=== PATIENT | female | born 1930 | race Caucasian/White ===

== ENCOUNTER 2019-01-23 21:51 | Inpatient (IN) ==
--- NOTE | 2019-01-23 22:02 | Emergency Department Note ---
Disposition Clinical Impression: Dementia, Altered mental status Disposition: Admitted As Inpatient Condition: Fair Referrals: Onesimo Prince, [employer]INU[employer] OPERATOR [Primary Care Provider] - Forms: ED Satisfaction Letter Time of Disposition: 23:45 (ronaldo Montes) Altered Mental Status HPI - General Chief Complaint: ED Altered Mental Status Stated Complaint: CONFUSION Time Seen by Provider: 01/23/19 21:53 Source: family, EMS Mode of arrival: EMS Limitations: altered mental status, age Nursing Notes Reviewed: Yes Vital Signs Reviewed: Yes - History of Present Illness MD complaint: altered mental status, confusion, weakness Onset (ago): hour(s) (6.5) Time: 15:00 Timing confirmed by: family member Pain Severity: moderate Pain Scale: 4 (right shoulder) Consistency of Symptoms: waxing and waning Context: history of similar presentation (dementia) Associated symptoms: Reports: shortness of breath (All obtained from family), difficulty walking. Denies: chest pain, cough, diaphoresis, fever, chills, headaches, loss of appetite, malaise, nausea/vomiting, rash, seizure, syncope, weakness, foul smelling urine, diarrhea, incontinence - Related Data Home Medications Medication Instructions Recorded Confirmed FLUoxetine HCl [PROzac] 20 mg PO DAILY 01/23/19 01/23/19 Furosemide [Lasix] 0 mg PO DAILY 01/23/19 01/23/19 LORazepam [Ativan] 0.25 mg PO PRN PRN 01/23/19 01/23/19 Lisinopril [Zestril] 10 mg PO DAILY 01/23/19 01/23/19 Omeprazole [PriLOSEC] 20 mg PO DAILY 01/23/19 01/23/19 Allergies Allergy/AdvReac Type Severity Reaction Status Date / Time No Known Allergies Allergy Verified 01/23/19 22:26 All systems ED: reviewed and negative except as stated. Review of Systems: As Per HPI (This information was obtained from the family not from the patient because of her confusional state) Constitutional: Reports: weakness. Denies: fever, chills Eyes: Denies: eye pain, eye discharge ENT ED: Denies: ear pain, throat pain Cardiovascular: Denies: chest pain, palpitations Respiratory: Denies: cough, dyspnea, wheezes Gastrointestinal: Denies: abdominal pain, nausea Genitourinary: Denies: urgency, dysuria, frequency Musculoskeletal: Denies: back pain, neck pain Integumentary: Denies: rash, abrasion Neurological: Reports: weakness, confusion. Denies: headache, abnormal gait Psychiatric: Denies: anxiety Endocrine: Denies: fatigue Hematological/Lymphatic: Denies: easy bleeding Past Medical History - Past Medical History Attestation: Yes The following information was validated with the patient. Source: old records reviewed, obtained from family, nursing notes reviewed Physical Exam - General Limitations: altered mental status, age General appearance: obese, other (Confused) - Head Head exam: atraumatic, normocephalic, normal inspection - Eye Eye exam: Present: normal appearance, PERRL, EOMI - ENT ENT exam: normal exam, normal oropharynx, mucous membranes moist, TM's normal bi laterally, normal external ear exam - Neck Neck exam: Present: normal inspection, full ROM, trachea midline - Chest Chest inspection: Present: normal inspection, symmetric chest wall rise - Respiratory Respiratory exam: Present: normal lung sounds bilaterally - Cardiovascular Cardiovascular exam: Present: regular rate, normal rhythm, normal heart sounds - Abdominal Exam Abdominal exam: Present: soft, Non-Tender, normal bowel sounds, other (Incontinent of urine). Absent: mass, pulsatile mass - Extremities Exam Extremities exam: Present: normal inspection, full ROM, normal capillary refill. Absent: tenderness, pedal edema, joint swelling, calf tenderness - Expanded Upper Extremity Exam Shoulder exam: Present: normal inspection, full ROM, tenderness (With range of motion but full range of motion no swelling), tenderness over AC joint (Bilateral) Arm exam: Present: normal inspection, full ROM Elbow exam: Present: normal inspection, full ROM Forearm/Wrist exam: Present: normal inspection, full ROM Hand exam: Present: normal inspection, full ROM Vascular exam: Normal: capillary refill, radial pulse - Expanded Lower Extremity Exam Neurovascular/Tendon exam: Present: normal capillary refill, normal fine/light touch Gait: not tested/not observed - Back Exam Back exam: Present: normal inspection, full ROM. Absent: muscle spasm - Neurological Exam Neurological exam: Present: alert, oriented X3, CN II-XII intact - Psychiatric Psychiatric exam: Present: other (Pleasantly confused) - Skin Skin exam: Present: warm, dry, intact, normal color Course Course Narrative: Patient immediately seen and examined laboratory data CT of the head chest x-ray urinalysis sepsis profile done in the event patient has underlying sepsis which included additionally adding a lactic and blood cultures the patient is not hypotensive she is confused tachycardic some mild hypoxia further testing will be done With the patient having underlying dementia it is difficult to determine altered mental status except for family states this is not her baseline - Reevaluation(s) Reevaluation #1: The patient having an altered mental status and the beta hydroxybutyrate this does appear to be somewhat concerning she is actually an underlying dehydration though that the hyperglycemia that may also be elevated because she has not been eating as often labs are negative we will repeat in the morning see if there is any other underlying condition which is causing an exacerbation of her dementia disposition admission services Dr. Corrales discussed case and plan Vital Signs Temperature 97.9 F 01/23/19 21:52 Pulse Rate 94 01/23/19 21:52 Respiratory Rate 16 01/23/19 21:52 Blood Pressure 148/70 01/23/19 21:52 O2 Sat by Pulse Oximetry 95 01/23/19 21:52 Temperature 97.9 F 01/23/19 21:52 Pulse Rate 116 01/23/19 23:10 Respiratory Rate 18 01/23/19 23:10 Blood Pressure 156/78 01/23/19 23:10 O2 Sat by Pulse Oximetry 96 01/23/19 23:10 Oxygen Delivery Oxygen Delivery Room Air Altered Mental Status - Differential Diagnosis Likely: altered mental status, delirium, dementia, psychiatric disease - Medical Records Medical records reviewed: Yes I reviewed the patient's medical records. - Lab Data Lab results reviewed: Yes I reviewed the patient's lab results. Result diagrams: 01/23/19 22:43 01/23/19 22:43 Lab Results 01/23/19 01/23/19 01/23/19 Range/Units 22:13 22:43 22:43 WBC 11.3 H (4.3-11.1) K/mcL RBC 4.13 (3.82-4.97) M/mcL Hgb 12.1 (11.5-15.4) g/dL Hct 35.8 (35.3-44.9) % MCV 86.7 (83.0-100.0) fL MCH 29.3 (28.0-33.3) pg MCHC 33.8 (31.6-35.5) g/dL RDW 12.7 (11.5-14.5) % Plt Count 252 (140-400) K/mcL MPV 10.3 (9.4-12.4) fL Immature Gran % 0.4 (0-4) % Seg Neutrophils % 70.8 % Lymphocytes % 15.7 % Monocytes % 12.1 % Eosinophils % 0.6 % Basophils % 0.4 % Neutrophils # 8.0 (1.6-8.9) K/mcL Lymphocytes # 1.8 (0.6-4.6) K/mcL Monocytes # 1.4 H (0.0-1.3) K/mcL Eosinophils # 0.1 (0.0-0.6) K/mcL Basophils # 0.1 (0.0-0.2) K/mcL PT (9.4-12.1) Seconds INR APTT (26.0-36.0) Seconds Sodium (136-145) mEq/L Potassium (3.5-5.1) mEq/L Chloride (98-107) mEq/L Carbon Dioxide (23-29) mEq/L BUN (8-23) mg/dL Creatinine (0.60-1.20) mg/dL Est GFR ( Amer) (> 60) Est GFR (Non-Af Amer) (> 60) BUN/Creatinine Ratio (6-26) Glucose (70-105) mg/dL Calculated Osmolality (280-300) Lactic Acid (0.5-2.2) mmol/L Calcium (8.6-10.3) mg/dL Phosphorus (2.7-4.5) mg/dL Magnesium (1.6-2.6) mg/dL Total Bilirubin (0.3-1.0) mg/dL Direct Bilirubin (0.0-0.2) mg/dL Indirect Bilirubin (0.0-1.2) mg/dL AST (13-39) Units/L ALT (7-52) Units/L Alkaline Phosphatase (34-104) Units/L Ammonia (16-53) mcmol/L Troponin I (< 0.04) ng/mL B-Natriuretic Peptide 122 H (Less than 100) pg/mL Serum Total Protein (6.4-8.9) g/dL Albumin (3.5-5.7) g/dL Globulin (2.4-3.5) g/dL Albumin/Globulin Ratio (1.1-2.2) Beta-Hydroxybutyric Acd (0.02-0.27) mmol/L TSH (0.340-5.600) mcIU/mL Urine Color Yellow (Yellow) Urine Clarity Cloudy A (Clear) Urine pH 7.5 (5.0-8.0) pH Units Ur Specific [place] 1.015 (1.010-1.025) Urine Protein Negative (Neg-Trace) mg/dL Urine Glucose (UA) Normal (Normal) mg/dL Urine Ketones Negative (Negative) mg/dL Urine Blood Small H (Negative) Urine Nitrite Negative (Negative) Urine Bilirubin Negative (Negative) Urine Urobilinogen 4.0 H (Normal) mg/dL Ur Leukocyte Esterase Negative (Negative) Urine Microscopic RBC 3-5 H (0-3) per hpf Urine Microscopic WBC 0-3 (0-3) per hpf Ur Squamous Epith Cells Few (None-Few) per lpf Amorphous Sediment Many H (Few) Urine Bacteria Many H (None-Few) per hpf Hyaline Casts Few (None-Few) per lpf Granular Casts Few H (None Seen) per lpf Ur Culture Indicated? YES A (NO) 01/23/19 01/23/19 01/23/19 Range/Units 22:43 22:43 22:43 WBC (4.3-11.1) K/mcL RBC (3.82-4.97) M/mcL Hgb (11.5-15.4) g/dL Hct (35.3-44.9) % MCV (83.0-100.0) fL MCH (28.0-33.3) pg MCHC (31.6-35.5) g/dL RDW (11.5-14.5) % Plt Count (140-400) K/mcL MPV (9.4-12.4) fL Immature Gran % (0-4) % Seg Neutrophils % % Lymphocytes % % Monocytes % % Eosinophils % % Basophils % % Neutrophils # (1.6-8.9) K/mcL Lymphocytes # (0.6-4.6) K/mcL Monocytes # (0.0-1.3) K/mcL Eosinophils # (0.0-0.6) K/mcL Basophils # (0.0-0.2) K/mcL PT 14.3 H (9.4-12.1) Seconds INR 1.3 APTT 32.3 (26.0-36.0) Seconds Sodium 130 L (136-145) mEq/L Potassium 2.9 L (3.5-5.1) mEq/L Chloride 93 L (98-107) mEq/L Carbon Dioxide 28 (23-29) mEq/L BUN 10 (8-23) mg/dL Creatinine 0.60 (0.60-1.20) mg/dL Est GFR ( Amer) > 60 (> 60) Est GFR (Non-Af Amer) > 60 (> 60) BUN/Creatinine Ratio 17 (6-26) Glucose 150 H (70-105) mg/dL Calculated Osmolality 272 L (280-300) Lactic Acid 1.0 (0.5-2.2) mmol/L Calcium 9.2 (8.6-10.3) mg/dL Phosphorus 2.8 (2.7-4.5) mg/dL Magnesium 1.6 (1.6-2.6) mg/dL Total Bilirubin 0.7 (0.3-1.0) mg/dL Direct Bilirubin 0.1 (0.0-0.2) mg/dL Indirect Bilirubin 0.6 (0.0-1.2) mg/dL AST 14 (13-39) Units/L ALT 11 (7-52) Units/L Alkaline Phosphatase 70 (34-104) Units/L Ammonia (16-53) mcmol/L Troponin I < 0.03 (< 0.04) ng/mL B-Natriuretic Peptide (Less than 100) pg/mL Serum Total Protein 7.2 (6.4-8.9) g/dL Albumin 3.7 (3.5-5.7) g/dL Globulin 3.5 (2.4-3.5) g/dL Albumin/Globulin Ratio 1.1 (1.1-2.2) Beta-Hydroxybutyric Acd (0.02-0.27) mmol/L TSH (0.340-5.600) mcIU/mL Urine Color (Yellow) Urine Clarity (Clear) Urine pH (5.0-8.0) pH Units Ur Specific [place] (1.010-1.025) Urine Protein (Neg-Trace) mg/dL Urine Glucose (UA) (Normal) mg/dL Urine Ketones (Negative) mg/dL Urine Blood (Negative) Urine Nitrite (Negative) Urine Bilirubin (Negative) Urine Urobilinogen (Normal) mg/dL Ur Leukocyte Esterase (Negative) Urine Microscopic RBC (0-3) per hpf Urine Microscopic WBC (0-3) per hpf Ur Squamous Epith Cells (None-Few) per lpf Amorphous Sediment (Few) Urine Bacteria (None-Few) per hpf Hyaline Casts (None-Few) per lpf Granular Casts (None Seen) per lpf Ur Culture Indicated? (NO) 01/23/19 01/23/19 01/23/19 Range/Units 22:43 22:43 22:43 WBC (4.3-11.1) K/mcL RBC (3.82-4.97) M/mcL Hgb (11.5-15.4) g/dL Hct (35.3-44.9) % MCV (83.0-100.0) fL MCH (28.0-33.3) pg MCHC (31.6-35.5) g/dL RDW (11.5-14.5) % Plt Count (140-400) K/mcL MPV (9.4-12.4) fL Immature Gran % (0-4) % Seg Neutrophils % % Lymphocytes % % Monocytes % % Eosinophils % % Basophils % % Neutrophils # (1.6-8.9) K/mcL Lymphocytes # (0.6-4.6) K/mcL Monocytes # (0.0-1.3) K/mcL Eosinophils # (0.0-0.6) K/mcL Basophils # (0.0-0.2) K/mcL PT (9.4-12.1) Seconds INR APTT (26.0-36.0) Seconds Sodium (136-145) mEq/L Potassium (3.5-5.1) mEq/L Chloride (98-107) mEq/L Carbon Dioxide (23-29) mEq/L BUN (8-23) mg/dL Creatinine (0.60-1.20) mg/dL Est GFR ( Amer) (> 60) Est GFR (Non-Af Amer) (> 60) BUN/Creatinine Ratio (6-26) Glucose (70-105) mg/dL Calculated Osmolality (280-300) Lactic Acid (0.5-2.2) mmol/L Calcium (8.6-10.3) mg/dL Phosphorus (2.7-4.5) mg/dL Magnesium (1.6-2.6) mg/dL Total Bilirubin (0.3-1.0) mg/dL Direct Bilirubin (0.0-0.2) mg/dL Indirect Bilirubin (0.0-1.2) mg/dL AST (13-39) Units/L ALT (7-52) Units/L Alkaline Phosphatase (34-104) Units/L Ammonia 37 (16-53) mcmol/L Troponin I (< 0.04) ng/mL B-Natriuretic Peptide (Less than 100) pg/mL Serum Total Protein (6.4-8.9) g/dL Albumin (3.5-5.7) g/dL Globulin (2.4-3.5) g/dL Albumin/Globulin Ratio (1.1-2.2) Beta-Hydroxybutyric Acd 0.48 H (0.02-0.27) mmol/L TSH 1.777 (0.340-5.600) mcIU/mL Urine Color (Yellow) Urine Clarity (Clear) Urine pH (5.0-8.0) pH Units Ur Specific [place] (1.010-1.025) Urine Protein (Neg-Trace) mg/dL Urine Glucose (UA) (Normal) mg/dL Urine Ketones (Negative) mg/dL Urine Blood (Negative) Urine Nitrite (Negative) Urine Bilirubin (Negative) Urine Urobilinogen (Normal) mg/dL Ur Leukocyte Esterase (Negative) Urine Microscopic RBC (0-3) per hpf Urine Microscopic WBC (0-3) per hpf Ur Squamous Epith Cells (None-Few) per lpf Amorphous Sediment (Few) Urine Bacteria (None-Few) per hpf Hyaline Casts (None-Few) per lpf Granular Casts (None Seen) per lpf Ur Culture Indicated? (NO) - Radiology Data Radiology results reviewed: Yes I reviewed the patient's radiology results. - EKG Data EKG attestation: Yes I reviewed and interpreted this EKG. EKG results narrative: Atrial fib breakdown 18 ER to calculate QRS 98 2334 QRS -48 left anterior fascicular block TPA Checklist - LKW: 3-4.5 hrs Add. Warnings/Precautions Patient/family understanding: The patient/family members have been counseled and understood the risk, benefit, and alternatives of treatment. Critical Care Time Critical Care Time: Yes Total Critical Care Time: 35 Attestation: High probability of clinically significant life-threatening deterioration is patient's condition as the result the patient having an altered mental status
[2019-01-23] MEDS ORDERED: 0.9 % Sodium Chloride 1,000 ML IVC ONE (22:08)
[2019-01-23 22:38] LABS: Bilirubin,Urine Negative (Negative); Blood,Urine Small (Negative); Clarity,Urine Cloudy (Clear); Color,Urine Yellow (Yellow); Glucose,Urine (UA) Normal (Normal); Ketones,Urine Negative (Negative); Leukocyte Esterase,Urine Negative (Negative); Nitrite,Urine Negative (Negative); PH,Urine 7.5 pH Units (5.0-8.0); Protein,Urine Negative (Neg-Trace); Specific Gravity,Urine 1.015 (1.010-1.025)
[2019-01-23 22:44] LABS: Amorphous Sediment,Urine Many (Few); Granular Casts,Urine Few per lpf (None Seen); Hyaline Casts,Urine Few per lpf (None-Few); Squamous Epithelial Cell,Urine Few per lpf (None-Few)
[2019-01-23 22:45] LABS: Bacteria,Urine Many per hpf (None-Few); WBC,Urine 0-3 per hpf (0-3)
[2019-01-23 22:58] LABS: Basophils % 0.4 %; Eosinophils # 0.1 K/mcL (0.0-0.6); Eosinophils % 0.6 %; Hematocrit 35.8 % (35.3-44.9); Hemoglobin 12.1 g/dL (11.5-15.4); Immature Granulocytes % 0.4 % (0-4); Lymphocytes # 1.8 K/mcL (0.6-4.6); Lymphocytes % 15.7 %; Mean Corpuscular HGB Conc 33.8 g/dL (31.6-35.5); Mean Corpuscular Hemoglobin 29.3 pg (28.0-33.3); Mean Corpuscular Volume 86.7 fL (83.0-100.0); Mean Platelet Volume 10.3 fL (9.4-12.4); Monocytes # 1.4 K/mcL (0.0-1.3); Monocytes % 12.1 %; Platelet Count 252 K/mcL (140-400); Red Blood Count 4.13 M/mcL (3.82-4.97); Red Cell Distribution Width 12.7 % (11.5-14.5); Segmented Neutrophils % 70.8 %; White Blood Count 11.3 K/mcL (4.3-11.1)
[2019-01-23 23:03] LABS: Basophils # 0.1 K/mcL (0.0-0.2)
[2019-01-23 23:07] LABS: INR 1.3; Prothrombin Time 14.3 Seconds (9.4-12.1)
[2019-01-23 23:09] LABS: Activated Partial Thrombo Time 32.3 Seconds (26.0-36.0)
[2019-01-23 23:18] LABS: Alanine Aminotransferase 11 Units/L (7-52); Albumin 3.7 g/dL (3.5-5.7); Albumin/Globulin Ratio 1.1 (1.1-2.2); Alkaline Phosphatase 70 Units/L (34-104); Aspartate Amino Transferase 14 Units/L (13-39); BUN/Creatinine Ratio 17 (6-26); Bilirubin,Direct 0.1 mg/dL (0.0-0.2); Bilirubin,Indirect 0.6 mg/dL (0.0-1.2); Bilirubin,Total 0.7 mg/dL (0.3-1.0); Blood Urea Nitrogen 10 mg/dL (8-23); Calcium 9.2 mg/dL (8.6-10.3); Carbon Dioxide 28 mEq/L (23-29); Chloride 93 mEq/L (98-107); Globulin 3.5 g/dL (2.4-3.5); Glucose 150 mg/dL (70-105); Magnesium 1.6 mg/dL (1.6-2.6); Osmolality,Calculated 272 (280-300); Phosphorous 2.8 mg/dL (2.7-4.5); Potassium 2.9 mEq/L (3.5-5.1); Sodium 130 mEq/L (136-145); Total Protein 7.2 g/dL (6.4-8.9); Troponin I < 0.03 ng/mL (< 0.04); eGFR For African Americans > 60 (> 60); eGFR For Non-African Americans > 60 (> 60)
[2019-01-23] MEDS ORDERED: Acetaminophen 325 MG TABLET PO PRN (23:51)
[2019-01-23] MEDS ORDERED: Ondansetron 4 MG/2 ML VIAL IVP PRN (23:51)
[2019-01-23] MEDS ORDERED: Naloxone 0.4 MG/ML INJ IVP PRN (23:51)
[2019-01-23] MEDS ORDERED: *HR* LORazepam 0.5 MG TABLET PO PRN (23:51)
[2019-01-24 00:49] LABS: ABG Base Excess 2 mEq/L (-2 to 3); ABG HCO3 25 mEq/L (21-27); ABG Oxygen Saturation 96 % (95-98); ABG PCO2 33 mmHg (35-45); ABG PH 7.48 pH Units (7.32-7.45); ABG PO2 73 mmHg (85-104); ABG TCO2 26 mEq/L (20-26)
[2019-01-24] MEDS: 0.9 % Sodium Chloride 1,000 ML IVC SCH ×2 (00:49→09:35)
[2019-01-24] MEDS ORDERED: *HR* Metoprolol 5 MG/5 ML VIAL IVP ONE (00:49)
[2019-01-24] MEDS: *HR* Digoxin 0.5 MG/2 ML AMPUL IVP ONE ×2 (01:01→04:04)
[2019-01-24] MEDS: Ibuprofen 400 MG TABLET PO PRN ×2 (02:50→18:58)
[2019-01-24] MEDS: *HR* LORazepam 0.5 MG TABLET PO PRN (02:50)
[2019-01-24] MEDS: Furosemide 40 MG TABLET PO SCH ×2 (07:34→09:34)
[2019-01-24] MEDS: FLUoxetine 20 MG CAPSULE PO SCH ×2 (07:34→09:34)
[2019-01-24] MEDS: Tobramycin/Dex Opth DROPS 2.5 ML BOTTLE LEFT EYE SCH ×2 (13:38→19:30)
--- NOTE | 2019-01-24 14:00 | Internal Med History&Physical ---
Date of Encounter: 01/24/19 Time of Encounter: 12:30 Assessment and Plan (1) Atrial fibrillation with rapid ventricular response Current visit: Yes Status: Acute EKG in emergency room showed heart rate 118/m. She has been given IV Lanoxin and metoprolol and started on maintenance doses of both. Duration of AF unknown. PT and OT evaluations will be done to assess fall risk to determine safety of use of OAC. (2) Hypokalemia Current visit: Yes Status: Acute Likely secondary in part to diuretic use. Diuretics will be held and supplemental potassium will be given (3) Hyponatremia Current visit: Yes Status: Acute Likely due in part to diuretic use. Diuretics will be held and electrolytes monitored. (4) Ketonemia Current visit: Yes Status: Acute Possibly secondary to fasting state. No evidence of DKA. Recheck labs in a.m. (5) Hypertension Current visit: Yes Status: Chronic Continue with lisinopril. Metoprolol has been added. Qualifiers: Hypertension type: essential hypertension Qualified Code(s): I10 - Essential (primary) hypertension (6) Conjunctivitis Current visit: Yes Status: Acute TobraDex has been ordered. Qualifiers: Conjunctivitis type: unspecified Laterality: left Qualified Code(s): H10.9 - Unspecified conjunctivitis (7) Intertrigo Current visit: Yes Status: Acute Lotrimin cream will be ordered. (8) Dementia Current visit: Yes Status: Acute TSH normal in ER at 1.777. B12 level will be ordered. MMSE will be done. Qualifiers: Dementia type: unspecified type Dementia behavioral disturbance: without behavioral disturbance Qualified Code(s): F03.90 - Unspecified dementia without behavioral disturbance (9) Altered mental status Current visit: Yes Status: Acute Baseline unknown. I suspect she is now back to her normal baseline level. Qualifiers: Altered mental status type: unspecified Qualified Code(s): R41.82 - Altered mental status, unspecified (10) Parkinsons disease Current visit: Yes Status: Chronic No medication presently used. PT and OT evaluations will be done to assess walking stability/fall risk. Internal Medicine - H&P: HPI Chief complaint: Altered mental status Admitted From: Emergency Dept Plans for Post Hospital Care: Home History of present illness: Ms. Ortega is a 88 year old female who was brought to emergency room after family reported altered mental status. She was evaluated and was found to have hypokalemia, hyponatremia and ketonemia. She was admitted to [facility] floor for ongoing care needs. She has dementia and cannot give reliable history otherwise. Past Med Surg Social Fam HX - Past Medical History Medical history: arthritis, dementia, diabetes, GERD, hypertension Psychiatric history: anxiety, depression - Social History Smoking Status: Never smoker Smokeless Tobacco Status: No Alcohol use: none Drug use: none Internal Medicine - H&P: Meds FLUoxetine HCl [PROzac] 20 mg PO DAILY 01/23/19 [History] Furosemide [Lasix] 0 mg PO DAILY 01/23/19 [History] LORazepam [Ativan] 0.25 mg PO PRN PRN 01/23/19 [History] Lisinopril [Zestril] 10 mg PO DAILY 01/23/19 [History] Omeprazole [PriLOSEC] 20 mg PO DAILY 01/23/19 [History] Allergy/AdvReac Type Severity Reaction Status Date / Time No Known Allergies Allergy Verified 01/23/19 22:26 All Systems PM: A 10-system review of systems was performed and is negative for pertinent findings except as documented above in the HPI. Review of systems: Unobtainable from the patient. A family friend in the room supplies following review of systems: Gen.: Her weight has been stable for several months Cardiovascular: She has history of hypertension but no known [place] heart failure angina DVT or pulmonary embolus Respiratory: She is a lifelong nonsmoker and has no known chronic lung disease GI: There is no known disorder of her liver gallbladder or exocrine pancreas : She has no known hematuria dysuria or kidney stones Neurologic: She has dementia and minimally conversive. There is no known history of large disposition strokes or seizures. Endocrine: Diabetes status is unknown. There is no known thyroid disease or hyperlipidemia Hematology/oncology: No history of blood disorders cancers or anemia Psychiatric: She has anxiety depression but no other mental health diagnoses [place] skeletal: She has DJD but no known gout or other bone joint or muscle disorders. - Constitutional Vitals: Temp Pulse Resp BP Pulse Ox 99.6 F 73 16 163/85 93 01/24/19 11:11 01/24/19 11:11 01/24/19 11:11 01/24/19 11:11 01/24/19 11:11 Exam: Gen.: She is a well-developed well-nourished female resting comfortably in bed who appears in no acute distress HEENT: Head is atraumatic and normocephalic. Eyes: EOMI. There is no scleral icterus. She has mucopurulent drainage at the medial canthus of the left eye Mouth: Mucosa is dry Neck: There is no thyromegaly or adenopathy noted. Heart: Irregularly irregular without murmurs or gallops Lungs: No wheezes or crackles are heard. Abdomen: There is a well-healed right lower quadrant scar. No masses or guarding are noted. Extremities: There is no cyanosis edema or clubbing noted. Dorsalis pedis and posterior tibial pulses are trace to 1+ palpable bilaterally. She has mild DJD changes of her hands. Neurologic: Mental status: She is a poor historian and cannot give reliable answers to questions. Cranial nerves: Smile is symmetric. Forehead wrinkles bilaterally. Tongue protrudes midline EOMI. Motor: she has cogwheeling and rigidity on passive range of motion of her wrist and elbows. She does not follow commands to attempt pronator drift testing. Cerebellar: She does not comprehend finger to nose testing. No further neurologic testing is attempted. Skin: Warm and dry. She has intertrigo under her right breast. Internal Med - H&P Results - Labs CBC & Chem 7: 01/23/19 22:43 01/23/19 22:43 Labs: Short CBC 01/23/19 Range/Units 22:43 WBC 11.3 H (4.3-11.1) K/mcL Hgb 12.1 (11.5-15.4) g/dL Hct 35.8 (35.3-44.9) % Plt Count 252 (140-400) K/mcL Neutrophils # 8.0 (1.6-8.9) K/mcL BMP 01/23/19 22:43 Sodium 130 L Potassium 2.9 L Chloride 93 L Carbon Dioxide 28 BUN 10 Creatinine 0.60 Glucose 150 H Calcium 9.2 Cardiac Enzymes 01/23/19 01/24/19 01/24/19 Range/Units 22:43 04:05 09:57 Troponin I < 0.03 < 0.03 < 0.03 (< 0.04) ng/mL Liver Function 01/23/19 Range/Units 22:43 Total Bilirubin 0.7 (0.3-1.0) mg/dL Direct Bilirubin 0.1 (0.0-0.2) mg/dL AST 14 (13-39) Units/L ALT 11 (7-52) Units/L Alkaline Phosphatase 70 (34-104) Units/L Albumin 3.7 (3.5-5.7) g/dL Urine 01/23/19 Range/Units 22:13 Urine Color Yellow (Yellow) Urine Clarity Cloudy A (Clear) Urine pH 7.5 (5.0-8.0) pH Units Ur Specific [place] 1.015 (1.010-1.025) Urine Protein Negative (Neg-Trace) mg/dL Urine Glucose (UA) Normal (Normal) mg/dL - ABG Interpretation ABG results: 01/24/19 00:46 ABG pH 7.48 H ABG pCO2 33 L ABG pO2 73 L ABG HCO3 25 ABG Total CO2 26 ABG O2 Saturation 96 ABG Base Excess 2 - Impressions ITS Impressions Head CT 01/23/19 22:08 IMPRESSION: 1. Small vessel chronic ischemic changes without acute hemorrhage or definite evidence for acute ischemia. 2. Dystrophic or vascular calcification in the left kathleen radiata. D/ / Tanmay Julio MD / Tanmay Julio MD Interpreting Provider: Tanmay Julio MD Chest X-Ray 01/23/19 22:43 IMPRESSION: Low lung volumes. No acute cardiopulmonary disease. D/ / Tiago Bazan MD / Tiago Bazan MD Interpreting Provider: Tiago Bazan MD
[2019-01-24] MEDS: Clotrimazole/Betameth Dip CRM 45 APPL/45 GM TUBE TP SCH ×2 (16:02→19:30)
[2019-01-24] MEDS: Potassium Chloride Elixir 20 MEQ/15 ML UDC PO SCH (19:30)
--- NOTE | 2019-01-24 21:44 | Electrocardiograph Report ---
[place] [id number] Test Date: 2019-01-23 Pat Name: Rosa Ortega Department: EDP-16 Room: [facility] Gender: F Magnetic Tester: : 1930 Requested By: Sun Soto Order Number: [id number] Reading MD: Lul Jerry Measurements Intervals [place] Rate: 118 P: [place]: QRS: -48 QRSD: 98 T: 95 QT: 334 QTc: 468 Interpretive Statements Atrial fibrillation with rapid ventricular response Left anterior fascicular block Consider right ventricular hypertrophy or posterior wall infarction Electronically Signed On 01-24-2019 21:43:01 EDT by Lul Jerry
[2019-01-25] MEDS: Tobramycin/Dex Opth DROPS 2.5 ML BOTTLE LEFT EYE SCH ×2 (05:30→12:05)
[2019-01-25] MEDS ORDERED: *HR* Enoxaparin 40 MG/0.4 ML SYRINGE SQ SCH (06:00)
[2019-01-25 06:21] LABS: BUN/Creatinine Ratio 18 (6-26); Blood Urea Nitrogen 10 mg/dL (8-23); Calcium 8.8 mg/dL (8.6-10.3); Carbon Dioxide 25 mEq/L (23-29); Chloride 99 mEq/L (98-107); Glucose 150 mg/dL (70-105); Osmolality,Calculated 278 (280-300); Sodium 133 mEq/L (136-145); eGFR For African Americans > 60 (> 60); eGFR For Non-African Americans > 60 (> 60)
[2019-01-25] MEDS: FLUoxetine 20 MG CAPSULE PO SCH (08:42)
[2019-01-25] MEDS: Clotrimazole/Betameth Dip CRM 45 APPL/45 GM TUBE TP SCH (08:46)
[2019-01-25] MEDS: *HR* LORazepam 0.5 MG TABLET PO PRN (08:46)
[2019-01-25] MEDS: Potassium Chloride Elixir 20 MEQ/15 ML UDC PO SCH (08:47)
[2019-01-25 09:00] LABS: Basophils % 0.4 %; Eosinophils # 0.3 K/mcL (0.0-0.6); Eosinophils % 2.3 %; Hematocrit 33.3 % (35.3-44.9); Hemoglobin 11.3 g/dL (11.5-15.4); Immature Granulocytes % 0.8 % (0-4); Lymphocytes # 1.6 K/mcL (0.6-4.6); Lymphocytes % 13.8 %; Mean Corpuscular HGB Conc 33.9 g/dL (31.6-35.5); Mean Corpuscular Hemoglobin 29.6 pg (28.0-33.3); Mean Corpuscular Volume 87.2 fL (83.0-100.0); Mean Platelet Volume 11.1 fL (9.4-12.4); Monocytes # 1.1 K/mcL (0.0-1.3); Monocytes % 9.9 %; Neutrophils # 8.2 K/mcL (1.6-8.9); Platelet Count 203 K/mcL (140-400); Red Blood Count 3.82 M/mcL (3.82-4.97); Red Cell Distribution Width 12.5 % (11.5-14.5); Segmented Neutrophils % 72.8 %; White Blood Count 11.2 K/mcL (4.3-11.1)
[2019-01-25] MEDS ORDERED: *HR* Digoxin 0.125 MG TABLET PO SCH (09:00)
[2019-01-25] MEDS: Ibuprofen 400 MG TABLET PO PRN (09:42)
[2019-01-25] MEDS ORDERED: Cyanocobalamin (B-12) 1,000 MCG/ML VIAL IM ONE (09:46)
[2019-01-25] MEDS ORDERED: Potassium Chloride Elixir 20 MEQ/15 ML UDC PO ONE (09:48)
[2019-01-25 10:35] VITALS: BP 125/76
[2019-01-25] MEDS ORDERED: ALPRAZolam 0.5 MG TABLET PO PRN (11:35)
--- NOTE | 2019-01-25 12:07 | Discharge Summary ---
Orders not resulted at time of discharge: Pending orders 01/23/19 22:43 Culture,Blood [BC] Stat 01/25/19 08:34 Hgb A1C AM 0400 01/25/19 10:07 Ferritin Routine Folate Routine Iron Profile Routine Procalcitonin Stat Date of Encounter: 01/25/19 Time of Encounter: 11:55 - Discharge Diagnosis (1) Atrial fibrillation with rapid ventricular response Priority: Primary Status: Acute (2) Hypokalemia Priority: Secondary Status: Acute (3) Hyponatremia Priority: Secondary Status: Acute (4) Ketonemia Priority: Secondary Status: Acute (5) Hypertension Priority: Secondary Status: Chronic Qualifiers: Hypertension type: essential hypertension Qualified Code(s): I10 - Essential (primary) hypertension (6) Conjunctivitis Priority: Secondary Status: Acute Qualifiers: Conjunctivitis type: unspecified Laterality: left Qualified Code(s): H10.9 - Unspecified conjunctivitis (7) Intertrigo Priority: Secondary Status: Acute (8) Dementia Priority: Secondary Status: Chronic Qualifiers: Dementia type: unspecified type Dementia behavioral disturbance: without behavioral disturbance Qualified Code(s): F03.90 - Unspecified dementia without behavioral disturbance (9) Altered mental status Priority: Secondary Status: Resolved Qualifiers: Altered mental status type: unspecified Qualified Code(s): R41.82 - Altered mental status, unspecified (10) Parkinsons disease Priority: Secondary Status: Chronic Hospital course: Ms. Ortega is a 88 year old female who was brought to emergency room after family reported altered mental status. She was evaluated and was found to have hypokalemia, hyponatremia and ketonemia. She was admitted to [facility] floor for ongoing care needs. Initial orders were written by the emergency room physician. I saw her on January 24 and performed a history and physical. She was given Lanoxin and metoprolol for AF with RVR. Her rate decreased to acceptable level. She will continue these medications at home. Her PCP can determine if she can safely use oral anticoagulant for CVA prophylaxis. Supplemental potassium was given for hypokalemia. She will remain off Lasix at discharge. It is anticipated her potassium and sodium will normalize. Ketonemia was improved on follow-up lab work. Her PCP can monitor. Lotrimin cream was ordered for intertrigo under the right breast. This will be continued for one week after discharge. B12 level returned low at 193. She was given a B12 injection IM and will start oral B12 supplement at discharge. Her PCP can monitor labs. PT and OT evaluations were ordered. Patient had advanced dementia and could not participate significantly. Hemoglobin decreased to 11.3 on day of discharge. Anemia testing was ordered with results pending at time of discharge. She had occasional low-grade fever during hospitalization. No antibiotics were given. Her PCP can monitor. On January 25 family felt she was improved and stable for discharge home. They declined further evaluation or consideration for ECF placement. She will follow with her PCP MIGUEL Prince CNP within 1 week. Family inquired about additional evaluation for dementia and I explained that her PCP could refer to neurology if needed. - Time Spent with Patient Total time spent providing and/or coordinating discharge services: - Discharge Medications Prescriptions: New Digoxin [Lanoxin] 0.125 mg PO DAILY #30 tablet Metoprolol [Lopressor] 12.5 mg PO BID #30 tablet Clotrimazole/Betameth Dip CRM [Lotrisone CRM] 1 appl TP BID #1 tube Cyanocobalamin (B-12) [Vitamin B12] 1,000 mcg PO DAILY #30 tablet Continued Lisinopril [Zestril] 10 mg PO DAILY Omeprazole [PriLOSEC] 20 mg PO DAILY LORazepam [Ativan] 0.25 mg PO PRN PRN PRN Reason: Anxiety FLUoxetine HCl [Prozac] 20 mg PO DAILY Furosemide [Lasix] 0 mg PO DAILY Home Medications: FLUoxetine HCl [Prozac] 20 mg PO DAILY 01/23/19 [History] Furosemide [Lasix] 0 mg PO DAILY 01/23/19 [History] LORazepam [Ativan] 0.25 mg PO PRN PRN 01/23/19 [History] Lisinopril [Zestril] 10 mg PO DAILY 01/23/19 [History] Omeprazole [PriLOSEC] 20 mg PO DAILY 01/23/19 [History] Clotrimazole/Betameth Dip CRM [Lotrisone CRM] 1 appl TP BID #1 tube 01/25/19 [Rx] Cyanocobalamin (B-12) [Vitamin B12] 1,000 mcg PO DAILY #30 tablet 01/25/19 [Rx] Digoxin [Lanoxin] 0.125 mg PO DAILY #30 tablet 01/25/19 [Rx] Metoprolol [Lopressor] 12.5 mg PO BID #30 tablet 01/25/19 [Rx] Allergies/Adverse Reactions: Allergy/AdvReac Type Severity Reaction Status Date / Time No Known Allergies Allergy Verified 01/23/19 22:26 Date of admission: 01/24/19 14:18 Primary care physician: Onesimo Prince CNP Consults: 01/24/19 00:19 Consult to Compliance Testing Analyst [CONS] Routine Reason for SW Consult: family is possibly unable to care for her at home. 01/24/19 14:20 Consult to Occupational Therapy [CONS] Routine Comment: Evaluate, develop and implement POC Reason for Consult: Dementia, Parkinson's, assess fall risk Does patient have active BEDREST order?: No Is patient medically & hemodynamically stable?: Yes Patient assessed for mobility or mobilized this visit?: Yes Consult to Physical Therapy [CONS] Routine Comment: Evaluate, develop and implement POC Reason for Consult: Dementia, Parkinson's disease, assess fall risk Does patient have active BEDREST order?: No Is patient medically & hemodynamically stable?: Yes Patient assessed for mobility or mobilized this visit?: Yes - Constitutional Vitals: Temp Pulse Resp BP Pulse Ox 99.3 F 66 20 125/76 94 01/25/19 10:30 01/25/19 10:30 01/25/19 10:30 01/25/19 10:30 01/25/19 10:30 - Patient Status Disposition: Home, Self-Care Condition: Fair - Discharge Instructions Follow Up With: Onesimo Prince CNP [Primary Care Provider] - 1 week - Diet and Activity Activity: resume usual activities as tolerated Diet: advance to your usual diet
[2019-01-25 14:45] LABS: Estimated Average Glucose 134 mg/dl
[2019-01-25 17:50] LABS: % Iron Saturation 5 % (15-50); Iron 13 mcg/dL (50-170); Transferrin 193 mg/dL (203-362)
[2019-01-25 18:07] LABS: Ferritin 89 ng/mL (10-120)
== END 2019-01-25 14:25 | disposition home or self-care (01) | DRG 309 ==
LOC: INPPIK 21:51 → EMEROOPIK 21:51 → INPPIK 01-24
PROVIDERS: ADMIT Internal Medicine; ATTEND Internal Medicine